=== PATIENT | male | born 1940 | race Caucasian/White ===

== ENCOUNTER 2017-01-25 00:49 | Emergency (ER) | payer MEDICARE ==
[~2017-01-25] VITALS: Ht 182.9 cm; Wt 90.7 kg
[2017-01-25] MEDS ORDERED: Morphine Sulfate 4mg/ml Inj IVP ONE (01:30)
[2017-01-25] MEDS ORDERED: Clindamycin 900mg 50 ML IVPB ONE (01:30)
[2017-01-25 02:05] LABS: BASOPHILS % (AUTO) 0.5 % (0.0-2.0); EOSINOPHILS % (AUTO) 3.5 % (0.0-3.0); LYMPHOCYTES % (AUTO) 15.3 % (20.0-45.0); MEAN CORPUSCULAR HEMOGLOBIN 31.3 PG (27.0-31.0); MEAN CORPUSCULAR HGB CONC 33.9 G/DL (32.0-36.0); MEAN CORPUSCULAR VOLUME 92 FL (80-99); MEAN PLATELET VOLUME 5.9 FL (6.5-10.1); MONOCYTES % (AUTO) 7.6 % (1.0-10.0); NEUTROPHILS % (AUTO) 73.1 % (45.0-75.0); PLATELET COUNT 224 K/UL (150-450); RED BLOOD COUNT 4.72 M/UL (4.70-6.10); RED CELL DISTRIBUTION WIDTH 11.3 % (11.6-14.8); WHITE BLOOD COUNT 12.2 K/UL (4.8-10.8)
[2017-01-25 02:15] LABS: ALANINE AMINOTRANSFERASE 10 U/L (3-41); ALBUMIN/GLOBULIN RATIO 1.3 (1.0-2.7); ANION GAP 18 (5-15); ASPARTATE AMINO TRANSFERASE 19 U/L (5-40); CALCIUM 9.4 mg/dL (8.6-10.2); CARBON DIOXIDE 27 mEQ/L (20-30); CHLORIDE 95 mEQ/L (98-107); CREATININE 0.9 mg/dL (0.7-1.2); HEMOLYSIS 1; POTASSIUM 3.9 mEQ/L (3.4-4.9); SODIUM 140 mEQ/L (135-145); TOTAL PROTEIN 7.2 g/dL (6.6-8.7)
[2017-01-25 02:26] LABS: CKMB 3.1 ng/mL (< 6.7)
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
[2017-01-25 04:30] VITALS: BP 122/60
[2017-01-25] MEDS ORDERED: METFORMIN HCL500 M1 ORAL (04:32)
[2017-01-25 05:59] VITALS: BP 143/76
[2017-01-25 06:02] VITALS: BP 143/76
--- NOTE | 2017-01-25 11:44 | Diagnostic Imaging Report ---
Indication: PAIN Technique: 3 views of the left knee Comparison: None Findings:There is a superior pole patellar osteophyte. No acute fractures. No dislocations. There is mild medial joint compartment narrowing. Impression:Degenerative changes No acute bony trauma
--- NOTE | 2017-01-25 12:28 | Diagnostic Imaging Report ---
Indication: Chest pain Technique: One view of the chest Comparison: None Findings: Suboptimal inspiration. Heart is borderline enlarged. Lungs and pleural spaces are clear. Impression: Borderline cardiomegaly No definite acute process
--- NOTE | 2017-01-26 02:58 | Cardiology Report ---
APPROVED REPORT EKG Measurement Heart [id number] [place] 150P27 [id number] Normal sinus rhythm Normal ECG
== END 2017-01-25 06:04 | disposition short-term general hospital (02) ==
LOC: EDBD 00:49 → EMR 01:13
DX: L03.116 Cellulitis of left lower limb (principal); E11.9 Type 2 diabetes mellitus without complications; Z89.511 Acquired absence of right leg below knee
CPT/HCPCS: 36415; 71010; 73562; 80053; 82553; 82962; 85025; 87040; 93005; 96374; 96375; 99285; J2270; S0077

== ENCOUNTER 2017-10-21 18:16 | Inpatient (IN) | payer MEDICARE ==
[~2017-10-21] VITALS: Ht 182.9 cm; Wt 81.6 kg
[~2017-10-21 18:16] MED LIST: METFORMIN HCL500 M1 ORAL
[2017-10-21] MEDS ORDERED: SIMVASTATIN5 MG ORAL (18:24)
[2017-10-21] MEDS ORDERED: LISINOPRIL5 MG ORAL (18:24)
[2017-10-21] MEDS ORDERED: METOPROLOL TART25 MG ORAL (18:24)
[2017-10-21] MEDS ORDERED: FUROSEMIDE20 M1 ORAL (18:24)
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
[2017-10-21 19:35] LABS: EOSINOPHILS % (AUTO) 6.5 % (0.0-3.0); LYMPHOCYTES % (AUTO) 27.7 % (20.0-45.0); MEAN CORPUSCULAR HEMOGLOBIN 30.1 PG (27.0-31.0); MEAN CORPUSCULAR HGB CONC 30.7 G/DL (32.0-36.0); MEAN CORPUSCULAR VOLUME 98 FL (80-99); MONOCYTES % (AUTO) 7.2 % (1.0-10.0); NEUTROPHILS % (AUTO) 57.7 % (45.0-75.0); PLATELET COUNT 203 K/UL (150-450); RED BLOOD COUNT 4.03 M/UL (4.70-6.10); RED CELL DISTRIBUTION WIDTH 12.3 % (11.6-14.8); WHITE BLOOD COUNT 13.1 K/UL (4.8-10.8)
[2017-10-21 20:02] LABS: ANION GAP 7 mmol/L (5-15); CALCIUM 8.8 MG/DL (8.5-10.1); CARBON DIOXIDE 26 MMOL/L (21-32); CHLORIDE 110 MMOL/L (98-107); POTASSIUM 4.5 MMOL/L (3.5-5.1); SODIUM 143 MMOL/L (136-145)
[2017-10-21 20:13] LABS: ALANINE AMINOTRANSFERASE 18 U/L (12-78); ALBUMIN/GLOBULIN RATIO 0.9 (1.0-2.7); ASPARTATE AMINO TRANSFERASE 19 U/L (15-37)
[2017-10-21 20:28] VITALS: BP 128/57
[2017-10-21] MEDS ORDERED: Nitroglycerin Subl 0.4mg tab SL PRN (22:15)
[2017-10-21] MEDS ORDERED: Milk of Magnesia 30ml Ud ORAL PRN (22:15)
[2017-10-21 23:23] VITALS: BP 129/60
[2017-10-21 23:56] VITALS: BP 129/73
[2017-10-22] MEDS: Metoprolol 25mg tab ORAL SCH ×3 (00:02→20:46)
[2017-10-22] MEDS ORDERED: Zolpidem 5mg tab ORAL PRN (00:45)
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
[2017-10-22 04:16] VITALS: BP 120/63
[2017-10-22 08:00] VITALS: BP 131/77
[2017-10-22 08:20] LABS: EOSINOPHILS % (AUTO) 7.9 % (0.0-3.0); LYMPHOCYTES % (AUTO) 35.2 % (20.0-45.0); MEAN CORPUSCULAR HEMOGLOBIN 32.1 PG (27.0-31.0); MEAN CORPUSCULAR HGB CONC 33.4 G/DL (32.0-36.0); MEAN CORPUSCULAR VOLUME 96 FL (80-99); MEAN PLATELET VOLUME 6.9 FL (6.5-10.1); MONOCYTES % (AUTO) 6.5 % (1.0-10.0); NEUTROPHILS % (AUTO) 49.4 % (45.0-75.0); PLATELET COUNT 206 K/UL (150-450); RED BLOOD COUNT 3.75 M/UL (4.70-6.10); RED CELL DISTRIBUTION WIDTH 11.6 % (11.6-14.8)
[2017-10-22 08:52] LABS: ANION GAP 6 mmol/L (5-15); CALCIUM 8.7 MG/DL (8.5-10.1); CARBON DIOXIDE 28 MMOL/L (21-32); CHLORIDE 109 MMOL/L (98-107); CHOLESTEROL 91 MG/DL (< 200); CHOLESTEROL/HDL RATIO 3.1 (3.3-4.4); POTASSIUM 4.4 MMOL/L (3.5-5.1); SODIUM 143 MMOL/L (136-145); THYROID STIMULATING HORMONE 1.678 uiU/mL (0.358-3.740)
[2017-10-22] MEDS: Lisinopril 10mg tab ORAL SCH (09:00)
[2017-10-22] MEDS: Aspirin Baby 81mg ORAL SCH (09:00)
[2017-10-22] MEDS: Docusate 100mg cap ORAL SCH ×2 (09:00→20:44)
[2017-10-22] MEDS: Heparin 5000 units/ml inj SUBQ SCH ×3 (09:04→20:51)
[2017-10-22 09:52] LABS: APPEARANCE,URINE CLEAR; KETONES,URINE NEGATIVE (NEGATIVE); LEUKOCYTE ESTERASE ,URINE NEGATIVE (NEGATIVE); NITRITE,URINE NEGATIVE (NEGATIVE); PH,URINE 8 (4.5-8.0); PROTEIN,URINE NEGATIVE (NEGATIVE); UROBILINOGEN,URINE NORMAL MG/DL (0.0-1.0)
[2017-10-22 10:04] LABS: BACTERIA,URINE OCCASIONAL /HPF; SQUAMOUS EPITHELIAL CELL,UR OCCASIONAL /LPF (NONE/OCC); WBC,URINE 0-2 /HPF (0 - 0)
[2017-10-22 12:00] VITALS: BP 133/73
[2017-10-22] MEDS ORDERED: Lexiscan 0.4mg/5ml syringe IV ONE (12:00)
--- NOTE | 2017-10-22 12:09 | Diagnostic Imaging Report ---
Indication: Pain Comparison: 01/25/17 A single view chest radiograph was obtained. Findings: Basilar atelectasis demonstrated with low lung volumes bilaterally. The heart is enlarged. Bones are osteopenic. There is a questionable infiltrate in the right upper lobe but the current evaluation is limited by rotation. Impression: Questionable right upper lobe infiltrate. Suggest repeat
--- NOTE | 2017-10-22 15:34 | Cardiology Report ---
APPROVED REPORT EXAM: Two-dimensional and M-mode echocardiogram with Doppler and color Doppler. INDICATION Angina pectoris M-Mode DIMENSIONS IVSd1.1 (0.7-1.1cm)Left Atrium (MM)4.6 (1.6-4.0cm) LVDd4.3 (3.5-5.6cm)Aortic Root3.2 (2.0-3.7cm) PWd1.0 (0.7-1.1cm)Aortic Cusp Exc.1.7 (1.5-2.0cm) LVDs3.0 (2.5-4.0cm) PWs0.9 cm Technically difficult study due to poor acoustical windows and patients position. Normal left ventricular chamber size, systolic function and wall motion to extent visualized. Left ventricular ejection fraction estimated to be 55-60 %. Study quality precludes accurate assessment of regional wall motion. Mild left ventricular hypertrophy by 2-D. No evidence of pericardial effusion. Left atrial size at upper limits of normal. Right cardiac chamber sizes are within normal limits. Mild focal aortic valve sclerosis with adequate cusp excursion. Moderate calcification of posterior mitral valve leaflet noted with adequate excursion of mitral valve leaflets. Mild mitral annulus and aortic root calcification. Pulmonic valve not well visualized. Normal tricuspid valve structure. IVC at normal size with physiologic collapse. A color flow and spectral Doppler study was performed and revealed: Mild aortic regurgitation. Trace to mild mitral regurgitation. Mitral diastolic velocities suggest reduced left ventricular relaxation c/w borderline mild LV diastolic dysfunction (Grade I). Trace tricuspid regurgitation. Tricuspid systolic velocities suggests peak right ventricular systolic pressure of 27 mmHg. No pulmonic regurgitation present.
--- NOTE | 2017-10-22 15:36 | Cardiology Report ---
APPROVED REPORT EKG Measurement Heart [id number] 162P53 [id number] Normal sinus rhythm Normal ECG
--- NOTE | 2017-10-22 15:45 | Diagnostic Imaging Report ---
Indication: chest pain Technique: The study was conducted under the supervision of a machine precision engraver. lexiscan (regadenoson) infusion over 10 seconds followed by intravenous administration of 32.7 mCi of technetium 99m Myoview was performed. Three plane SPECT imaging of the heart was then performed. A resting study was performed as part of the one-day protocol with 10.2 mCi of technetium 99m myoview injected intravenously at that time. Three plane SPECT imaging of the heart was obtained. Comparison: None Clinical data: 1. Clinical response: Non ischemic 2. Electrocardiographic response: Non ischemic Findings: The myocardial perfusion scan demonstrates no definite fixed or subtle perfusion defects. LVEF estimated at 63%. Impression: No definite evidence of myocardial ischemia.
[2017-10-22 16:00] VITALS: BP 135/73
[2017-10-22 20:00] VITALS: BP 143/78
[2017-10-23 00:23] VITALS: BP 144/79
[2017-10-23 00:25] VITALS: BP 144/79
--- NOTE | 2017-10-23 03:45 | Progress Note ---
DATE: 10/22/2017 CARDIOLOGY PROGRESS NOTE SUBJECTIVE: No chest pain. No shortness of breath. Some weakness. The patient is an amputee. He has not ambulated here. OBJECTIVE: VITAL SIGNS: Blood pressure 135/73, pulse 74, respirations 20, and afebrile. Monitored rhythm sinus and sinus bradycardia, no pauses. LUNGS: Good breath sounds. No wheezing. CARDIAC: Regular rhythm and rate. Normal S1 and S2 with a fourth heart sound. ABDOMEN: Soft. EXTREMITIES: No edema. Right BKA stump intact. LABORATORY DATA: Laboratories are reviewed. Myocardial perfusion scan revealed normal ejection fraction at stress with no perfusion defects at rest or stress. IMPRESSION: 1. Chest pain episode was most likely due to musculoskeletal source related to prior rib cartilage deformity. 2. Low likelihood for flow-limiting coronary artery disease. 3. Right below-knee amputation. 4. Type 2 diabetes mellitus, well controlled. 5. Hypertensive heart disease with improving blood pressure control. PLAN: 1. Maintain anti-platelet therapy. 2. Beta blockade and statin. 3. Follow up venous duplex study. 4. Analgesics. 5. Reassurance regarding stable cardiovascular parameters at this time. Raghavendra Jones M.D. DR: MORENA JOB#: [id number] CC:
[2017-10-23 04:16] VITALS: BP 121/66
[2017-10-23 08:53] VITALS: BP 148/82
[2017-10-23] MEDS: Heparin 5000 units/ml inj SUBQ SCH (09:00)
[2017-10-23] MEDS: Aspirin Baby 81mg ORAL SCH (09:38)
[2017-10-23] MEDS: Docusate 100mg cap ORAL SCH (09:38)
[2017-10-23] MEDS: Metoprolol 25mg tab ORAL SCH (09:39)
[2017-10-23] MEDS: Lisinopril 10mg tab ORAL SCH (09:39)
--- NOTE | 2017-10-23 09:52 | History & Physical ---
History and Physical History & Physicial dict dc home ANANTH ESPINAL Oct 23, 2017 09:52
[2017-10-23 12:56] VITALS: BP 137/95
--- NOTE | 2017-10-23 16:03 | Cardiology Report ---
APPROVED REPORT EKG Measurement Heart [id number] [place] 156P45 [id number] Normal sinus rhythm Nonspecific intraventricular conduction delay Borderline ECG
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
--- NOTE | 2017-10-24 08:07 | Discharge Summary ---
Discharge Summary Hospital Course Date of Admission Oct 21, 2017 at 22:04 Date of Discharge Oct 23, 2017 at 14:08 Admitting Diagnosis ACS HPI Hugo Sanchez is a 77 year old male who was admitted on Oct 21, 2017 at 22:04 for Acute Coronary Syndrome Hospital Course [id number] Discharge Discharge Disposition Patient was discharged to Home (01) Discharge Diagnoses: Patricia Fonseca NP Oct 24, 2017 08:07
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
== END 2017-10-23 14:08 | disposition home or self-care (01) | DRG 313 ==
LOC: EDBD 18:16 → EMR 19:42 → OBSVTOIN 22:04 → 2E 22:04 → EDBEDREQ 22:10 → 2E 23:32
DX: R07.89 Other chest pain (principal); R00.1 Bradycardia, unspecified; I50.32 Chronic diastolic (congestive) heart failure; I11.0 Hypertensive heart disease with heart failure; E11.9 Type 2 diabetes mellitus without complications; Z89.511 Acquired absence of right leg below knee; E78.5 Hyperlipidemia, unspecified; Z88.0 Allergy status to penicillin; Z87.828 Personal history of other (healed) physical injury and trauma
CPT/HCPCS: 36415; 71010; 78452; 80048; 80053; 80061; 81003; 82550; 83880; 84443; 84484; 85025; 93005; 93017; 93306; 96374; 99285; J2785